=== PATIENT | male | born 1985 | race Caucasian/White ===

== ENCOUNTER 2018-10-12 14:28 | Emergency (ER) | payer SELFPAY ==
[2018-10-12] MEDS ORDERED: predniSONE TAB* 10 MG PO ONE (15:21)
[2018-10-12] MEDS ORDERED: diPHENhydraMINE PO* 50 MG PO ONE (15:22)
--- NOTE | 2018-10-12 15:26 | ED ---
Allergic Reaction/Systemic - HPI Summary HPI Summary: This pt is a 32 y/o male presenting to [facility] c/o bee sting today around 13:30-13 :45. Pt reports there were some bees in a straw on the ground when he was trying to move them with a shovel and got stung. He notes he was stung once on his left ear. Pt then began to have pruritic hives all over his body. He denies SOB, difficulty breathing, throat tightening, cough. Pt took Benadryl after bee sting today. Currently reports he is still pruritic all over body. Denies fever , chills, erythema of eyes, sore throat, CP, abd pain, nausea, vomiting, dysuria , hematuria, myalgia, edema, or dizziness. He denies hx of allergic reactions to bees. Pt does not have a PCP. He denies taking any medications on a daily basis. - History of Current Complaint Chief Complaint: EDAllergicReaction Time Seen by Provider: 10/12/18 15:18 Hx Obtained From: Patient Onset/Duration: Started hours ago, Still Present Timing: Lasting Hours Severity Currently: Mild Pain Intensity: 3 Pain Scale Used: 0-10 Numeric Location: Diffuse Character: Pruritus, Hives Aggravating Factor(s): Nothing Alleviating Factor(s): Nothing Associated Signs And Symptoms: Positive: Rash. Negative: Abdominal Pain, Chest Pain, Cough Wheezing, Difficulty Breathing, Nausea, Throat Tightening, Vomiting - Allergies/Home Medications Allergies/Adverse Reactions: Allergies Allergy/AdvReac Type Severity Reaction Status Date / Time No Known Allergies Allergy Verified 10/12/18 14:35 PMH/Surg Hx/FS Hx/Imm Hx Endocrine/Hematology History: Denies: Hx Diabetes Cardiovascular History: Denies: Hx Hypertension Infectious Disease History: No Infectious Disease History: Denies: Traveled Outside the [place] in Last 30 Days - Family History Known Family History: Positive: Non-Contributory - Social History Alcohol Use: Occasionally Substance Use Type: Reports: None Smoking Status (MU): Current Some Day Smoker Review of Systems Negative: Fever, Chills Negative: Erythema Negative: Sore Throat Negative: Chest Pain Negative: Shortness Of Breath, Cough Negative: Abdominal Pain, Vomiting, Nausea Negative: dysuria, hematuria Negative: Myalgia, Edema Positive: Rash - pruritic hives Neurological: Other - NEGATIVE: dizziness All Other Systems Reviewed And Are Negative: Yes Physical Exam - Summary Physical Exam Summary: Constitutional: Well-developed, Well-nourished, Alert. (-) Distressed Skin: Warm, Dry HENT: Normocephalic; Atraumatic. Left ear mild erythematous around the sting. Eyes: Conjunctiva normal Neck: Musculoskeletal ROM normal neck. (-) JVD, (-) Stridor, (-) Tracheal deviation Cardio: Rhythm regular, rate normal, Heart sounds normal; Intact distal pulses; The pedal pulses are 2+ and symmetric. Radial pulses are 2+ and symmetric. (-) Murmur Pulmonary/Chest wall: Effort normal. (-) Respiratory distress, (-) Wheezes, (-) Rales Abd: Soft, (-) tenderness, (-) Distension, (-) Guarding, (-) Rebound Musculoskeletal: (-) Edema Lymph: (-) Cervical adenopathy Neuro: Alert, Oriented x3 Psych: Mood and affect Normal Triage Information Reviewed: Yes Vital Signs On Initial Exam: Initial Vitals Temp Pulse Resp BP Pulse Ox 99.9 F 84 20 149/98 98 10/12/18 14:30 10/12/18 14:30 10/12/18 14:30 10/12/18 14:30 10/12/18 14:30 Vital Signs Reviewed: Yes Diagnostics - Vital Signs Vital Signs Temp Pulse Resp BP Pulse Ox 10/12/18 14:30 99.9 F 84 20 149/98 98 - Laboratory Lab Statement: Any lab studies that have been ordered have been reviewed, and results considered in the medical decision making process. Allergic Reaction Course/Dx - Course Assessment/Plan: Pt is a 32 y/o male presenting to [facility] c/o bee sting today around 13:30-13:45. Pt reports there were some bees in a straw on the ground when he was trying to move them with a shovel and got stung. He notes he was stung once on his left ear. Pt then began to have pruritic hives all over his body. He denies SOB, difficulty breathing, throat tightening, cough. On physical exam, left ear mild erythematous around the sting. In the ED course the pt was given Benadryl and prednisone. Patient will be discharged home with follow up from [facility]. He was given prescriptions for prednisone and benadryl. Pt was instructed to return to the ED for any worsening or new symptoms. - Diagnoses Provider Diagnoses: Bee sting, Hives Discharge - Sign-Out/Discharge Documenting (check all that apply): Patient Departure - Discharge home Patient Received Moderate/Deep Sedation with Procedure: No - Discharge Plan Condition: Stable Disposition: HOME Prescriptions: diPHENhydraMINE PO* [Benadryl PO 50 MG CAP*] 50 mg PO Q6H PRN #12 cap PRN Reason: Allergy Symptoms predniSONE TAB* [Deltasone 20 MG TAB*] 20 mg PO DAILY #4 tab Patient Education Materials: Urticaria (ED), Insect Bite or Sting (ED) Referrals: [facility] [Outside] Additional Instructions: Follow up with [facility] in 2-3 days. RETURN TO THE EMERGENCY DEPARTMENT FOR CHANGING OR WORSENING SYMPTOMS, SUCH THROAT TIGHTENING, DIFFICULTY BREATHING. - Attestation Statements Document Initiated by Scribe: Yes Documenting Scribe: Mely Guzman Provider For Whom Scribe is Documenting (Include Credential): Mulugeta Henry MD Scribe Attestation: Mely Bowden, scribed for Mulugeta Henry MD on 10/12/18 at 1535. Status of Scribe Document: Ready
[2018-10-12 15:41] VITALS: BP 140/93
== END 2018-10-12 15:40 | disposition home or self-care (01) ==
LOC: ED 14:28
DX: T63.441A Toxic effect of venom of bees, accidental (unintentional), initial encounter (principal); L50.9 Urticaria, unspecified; Y92.9 Unspecified place or not applicable; F17.210 Nicotine dependence, cigarettes, uncomplicated
CPT/HCPCS: 99282; A9270-GY; J7512